=== PATIENT | female | born 1995 | race Caucasian/White ===

== ENCOUNTER 2020-07-21 12:49 | Outpatient (CLI) | payer BC, SELFPAY ==
[2020-07-21 13:25] LABS: Basophils Percent Auto 0.3 % (0.2-1.2); Eosinophils Percent Auto 0.2 % (0-4.4); Hematocrit 33.4 % (37.0-47.0); Hemoglobin 11.4 g/dL (12.0-15.0); Immature Granulocyte Absolute 0.08 K/mm3 (0.00-0.031); Immature Granulocyte Percent A 0.7 % (0-0.5); Lymphocytes Absolute Auto 2.07 K/mm3 (0.9-3.2); Lymphocytes Percent Auto 18.3 % (18.3-44.2); Mean Corpuscular HGB Conc 34.1 g/dl (32-36); Mean Corpuscular Hemoglobin 30.3 pg (26-34); Mean Corpuscular Volume 88.8 fl (80-100); Mean Platelet Volume 9.8 fl (7.4-10.4); Monocytes Absolute Auto 0.9 K/mm3 (0.1-0.6); Monocytes Percent Auto 7.5 % (2.6-8.5); Neutrophils Absolute Auto 8.3 K/mm3 (1.3-6.7); Platelet Count Result 299 k/mm3 (150-375); Red Blood Count 3.76 M/mm3 (4.2-5.4); Red Cell Distribution Width 12.7 % (11.5-14.5); White Blood Count 11.3 K/mm3 (4.5-10.0)
[2020-07-21 14:47] LABS: Vitamin D 25 Hydroxy 46.6 ng/mL
[2020-07-21 14:57] LABS: Glucose 1 Hour PP 50gm Dose 94 mg/dL
== END 2020-07-21 12:50 | disposition home or self-care (01) ==
PROVIDERS: Visit Provider Obstetrics & Gynecology
DX: Z34.90 Encounter for supervision of normal pregnancy, unspecified, unspecified trimester (principal)
CPT/HCPCS: 36415; 82306; 82947; 85025

== ENCOUNTER 2020-10-26 06:24 | Inpatient (IN) | payer BC, SELFPAY ==
[2020-10-26] VITALS (15 sets, daily range): BP systolic 115–144; BP diastolic 74–100; PULSE 61–123; RESP 16–20; TEMP 36.6–36.8; O2SAT 90–100; BMI 39.6
--- NOTE | 2020-10-26 07:10 | LDADM ---
This patient, Belle Nino, was admitted to Labor/Delivery/Recovery 102 on 10/26/20 at 06:24. Plans for labor, pain management and were discussed with patient. Patient/family oriented to hospital policies and general routines including ID bracelet, bed and alarms, visiting hours, pain management, procedures, bathroom and other care routines, personal items, smoking policy, room service/diet and guest tray routines, infant security routines, and visiting hours. Patient/Family are encouraged to report perceived risks to care and to ask questions if they do not understand what they are told or what they should do. See OBIX for further documentation.
--- NOTE | 2020-10-26 07:25 | WPDOBADMIT ---
Obstetrics - Admit Note Admission Note: record reviewed. No pertinent additions to the history and/or any subsequent changes in the physical findings that are not consistent with the expected course of the were found.Pt arrived in active labor after SROM at home, declines IV access and pitocin, Additions to the history and/or subsequent changes in the physical findings follow. None.
--- NOTE | 2020-10-26 08:21 | PM.OBPNLAB ---
Pain Control Date/time seen: 10/26/20 08:21 They had difficulty getting IV. At this time pt declines the IV. We have discussed importance of IV access in case of emergency. Pt verbalized understanding and is willing to let them use a butterfly for labs but not a IV at this time.
[2020-10-26 08:42] LABS: Basophils Percent Auto 0.1 % (0.2-1.2); Hemoglobin 11.9 g/dL (12.0-15.0); Immature Granulocyte Absolute 0.11 K/mm3 (0.00-0.031); Immature Granulocyte Percent A 0.8 % (0-0.5); Lymphocytes Absolute Auto 1.43 K/mm3 (0.9-3.2); Lymphocytes Percent Auto 9.8 % (18.3-44.2); Mean Corpuscular Hemoglobin 29.8 pg (26-34); Mean Corpuscular Volume 87.7 fl (80-100); Mean Platelet Volume 9.9 fl (7.4-10.4); Monocytes Absolute Auto 0.7 K/mm3 (0.1-0.6); Monocytes Percent Auto 4.9 % (2.6-8.5); Neutrophils Absolute Auto 12.3 K/mm3 (1.3-6.7); Neutrophils Percent Auto 84.4 % (45.5-73.1); Platelet Count Result 253 k/mm3 (150-375); Red Blood Count 3.99 M/mm3 (4.2-5.4); Red Cell Distribution Width 13.1 % (11.5-14.5); White Blood Count 14.6 K/mm3 (4.5-10.0)
[2020-10-26] MEDS: OXYTOCIN 10 UNITS/ML VIAL IM (10:47)
[2020-10-26] MEDS: miSOPROStol 200 MCG TABLET 800 MCG (10:55)
--- NOTE | 2020-10-26 11:14 | PM.OBPRVD ---
OB - Delivery Note Procedure Delivery date: 10/26/20 Induction method: none Delivery monitor: external FHT and external uterine Route of delivery: Laceration Description: Perineal - 2nd Degree Delivery repair: vicryl Quantitative Blood Loss (ml): 348 Anesthesia type: Local Baby Date of : 10/26/20 Time of : 10:36 Weeks of gestation at delivery: 39 Infant gender: Female presentation: vertex position: Left Occiput Posterior Placenta delivery description: Spontaneous Narrative: Mother and baby in stable condition. Gasses collected and handed off to staff.
--- NOTE | 2020-10-26 13:40 | PC.NURSE ---
Patient transferred to post room #285 ambulatory from labor and delivery. Support person present. Oriented to unit, room, information board, rooming in, admission packet and security measures. Patient verbalizes understanding.
[2020-10-26] MEDS: WITCH HAZEL 40 PADS 1 PAD TOPICAL (14:00)
[2020-10-26] MEDS: BENZOCAINE 20% AER SPR (*SP) 56 GM CAN 1 SPRAY TOPICAL (14:00)
[2020-10-26] MEDS: LANOLIN (LANSINOH) 7.5 GM CREAM 1 APPLIC TOPICAL (15:24)
--- NOTE | 2020-10-26 15:44 | PC.NURSE ---
1515 Called to room to assist with breast feeding; baby in quiet alert state, sucking on her hand. Mother reports strong first feed after delivery, and then that baby nursed about 4 minutes about one hour ago. Mother has marked flat nipples; areola is soft. baby made fair attempt to latch, but not vigorous enough to latch and pull nipple into her mouth. Mother shown how to gently roll her nipple, but little change seen. Latch assist used, again with little change in how everted mother's nipple was. Nipple shield placed; mother shown how to correctly apply the shield. Baby able to latch and demonstrated rhythmic vigorous sucking for about 3-4 minutes; she became sleepy, and shield repositioned. Switched to L side, and baby latched easily with nipple shield, and demonstrated rhythmic sucking. Parents instructed that mother will start pumping if nipple shield used 3 times. Mother was shown how and can easily hand express colostrum. Parents instructed to call for nurse assistance with breast feedings. FOB present, and engaged in teaching and baby care. Parents voiced understanding of information shared.
[2020-10-27 05:33] LABS: Hematocrit 27.7 % (37.0-47.0); Hemoglobin 9.4 g/dL (12.0-15.0)
[2020-10-27 06:59] LABS: Rapid Plasma Reagin Non-Reactive (NonReactive)
--- NOTE | 2020-10-27 07:49 | PM.OBPNVD ---
OB - PN: Subj Subjective Date/time seen: 10/27/20 07:49 Patient comments: no complaints baby status: doing well OB - PN: Obj Data Labs CBC & Chem 7: 10/27/20 05:10 Labs: Laboratory Results - last 24 hr 10/26/20 10/26/20 10/26/20 07:07 07:07 07:07 WBC 14.6 H RBC 3.99 L Hgb 11.9 L Hct 35.0 L MCV 87.7 MCH 29.8 MCHC 34.0 RDW 13.1 Plt Count 253 MPV 9.9 Immature Gran % (Auto) 0.8 H Neut % (Auto) 84.4 H Lymph % (Auto) 9.8 L [place] % (Auto) 4.9 Eos % (Auto) 0.0 Baso % (Auto) 0.1 L Lymph # (Auto) 1.43 [place] # (Auto) 0.7 H Eos # (Auto) 0.0 Baso # (Auto) 0.0 Abs Immat Gran (auto) 0.11 H Absolute Neuts (auto) 12.3 H Absolute Nucleated RBC 0.0 Nucleated RBC % 0.0 RPR Non-reactive Blood Type O Positive Antibody Screen Negative 10/27/20 05:10 WBC RBC Hgb 9.4 L Hct 27.7 L MCV MCH MCHC RDW Plt Count MPV Immature Gran % (Auto) Neut % (Auto) Lymph % (Auto) [place] % (Auto) Eos % (Auto) Baso % (Auto) Lymph # (Auto) [place] # (Auto) Eos # (Auto) Baso # (Auto) Abs Immat Gran (auto) Absolute Neuts (auto) Absolute Nucleated RBC Nucleated RBC % RPR Blood Type Antibody Screen OB - PN A/P Plan day: 1 Plan: routine care and discharge home (Pt desires discharge to home. She has had 2 elevated blood pressure but normal since. We have discussed PIH precautions in great detail.If labs normal she can be discharged to home. Return to hospital for f/u tomorrow and office in 1 week.) Time Spent With Patient Time: Total time spent is greater than 50% in coordination of care (as documented) at patient's floor/unit and/or counseling patient: Time with patient: less than 15 minutes Review of Systems Review of Systems: All systems reviewed & are unremarkable except as noted in HPI and below Exam Narrative: Exam Narrative: Fundus firm and vaginal flow controlled. No lower ext redness, warmth, or edema. Negative homans. Denies h/a, v/d or e/p. Reflexes normal. Const: General: comfortable Chest: Breast/axilla inspection: normal inspection of the breasts Resp: Effort & Inspection: normal respiratory effort Cardio: Rate: regular rate GI: GI Palp: Yes Soft to palpation Psych: Appearance: grossly normal Affect: normal affect Attitude: cooperative Thought content: Yes Normal thought content present Judgement: Good judgement present (Psych)
[2020-10-27 07:55] VITALS: BP 123/73; PULSE 96; RESP 16; TEMP 36.8; O2SAT 99
[2020-10-27 08:30] VITALS: PULSE 96; RESP 16; O2SAT 99
[2020-10-27] MEDS: MULTIVIT/MIN/PREN/FOL AC/IRON TABLET 1 TAB PO (08:45)
[2020-10-27] MEDS: DOCUSATE SODIUM 100 MG CAPSULE PO (08:45)
[2020-10-27] MEDS: POLYSACCHARIDE IRON COMPLEX 150 MG CAPSULE PO (08:45)
[2020-10-27 09:22] LABS: Basophils Percent Auto 0.3 % (0.2-1.2); Eosinophils Percent Auto 0.3 % (0-4.4); Hematocrit 28.7 % (37.0-47.0); Hemoglobin 9.5 g/dL (12.0-15.0); Immature Granulocyte Absolute 0.06 K/mm3 (0.00-0.031); Immature Granulocyte Percent A 0.6 % (0-0.5); Lymphocytes Absolute Auto 1.94 K/mm3 (0.9-3.2); Lymphocytes Percent Auto 18.5 % (18.3-44.2); Mean Corpuscular HGB Conc 33.1 g/dl (32-36); Mean Corpuscular Hemoglobin 29.4 pg (26-34); Mean Corpuscular Volume 88.9 fl (80-100); Mean Platelet Volume 9.8 fl (7.4-10.4); Monocytes Absolute Auto 0.9 K/mm3 (0.1-0.6); Monocytes Percent Auto 8.6 % (2.6-8.5); Neutrophils Absolute Auto 7.5 K/mm3 (1.3-6.7); Neutrophils Percent Auto 71.7 % (45.5-73.1); Platelet Count Result 208 k/mm3 (150-375); Red Blood Count 3.23 M/mm3 (4.2-5.4); Red Cell Distribution Width 13.2 % (11.5-14.5); White Blood Count 10.5 K/mm3 (4.5-10.0)
[2020-10-27 09:34] LABS: Alanine Aminotransferase 14 U/L (4-35); Albumin Level 3.3 g/dL (3.5-5.1); Alkaline Phosphatase 110 U/L (38-126); Anion Gap 6 mmol/L (8-16); Aspartate Amino Transferase 26 U/L (14-36); Bilirubin,Total 0.3 mg/dL (0.2-1.3); Blood Urea Nitrogen 10 mg/dL (7-17); Calcium 8.7 mg/dL (8.4-10.2); Carbon Dioxide 27 mmol/L (22-30); Chloride 103 mmol/L (98-107); Estimated CRCL calculation 186 ml/min; Estimated Glomerular Filt Rate > 60; Glucose 127 mg/dL (65-105); Potassium 3.7 mmol/L (3.4-5.0); Sodium 136 mmol/L (137-145); Uric Acid 4.4 mg/dL (2.5-7.5)
--- NOTE | 2020-10-27 15:18 | PC.NURSE ---
1315 Worked with mother and baby at this feeding; baby awake. Nipple shield placed; mother able to apply nipple shield correctly. Mother uses football position. Reviewed positioning, alignment and importance of deep latch with the nipple shield. Baby latched and nursed and mother reported comfortable breast feeding. Baby nursed about 10 minutes. FOB then fed bottle feeding when baby took eagerly. Feeding plan initiated ofo breast feeding, bottle feeding and pumping at every feeding. At home baby to take minimum of 20-30 cc increasing as baby desires. Mother states she has some stored breast milk in her freezer at home that she pumped over the past week or so. Reviewed giving breast milk first, and adding formula to complete baby's feedings. They voiced understanding. Mother expressed interest in an OB visit next week. Nurse encouraged it. They will call for an appointment. Mother has Mother- Baby guide for home reference and LC contact information.
--- NOTE | 2020-10-27 16:47 | PC.NURSE ---
1400-Patient viewed the discharge video Mother & Baby Care, The First Two Weeks . Patient was given the opportunity and encouraged to ask questions. Patient verbalized understanding of information shared and has been given the mother/baby guide for home reference.
[2020-10-28 09:15] VITALS: BP 125/75; PULSE 84; RESP 20; TEMP 36.9; O2SAT 100
--- NOTE | 2020-11-16 08:09 | PM.OBDSVD ---
DS: Admitting Diagnosis Admitting Diagnosis Admitting Diagnosis: Labor DS: Discharge Diagnosis Discharge Diagnosis (1) Vaginal delivery: Code(s): O80 - Encounter for full-term uncomplicated delivery Status: Acute OB - DS: Summary OB Procedures : None OB Procedures Intrapartum: Spontaneous Vag Delivery OB Procedures: : None Time Spent with Patient Time attestation: Total time spent providing and/or coordinating discharge services: Discharge Plan Discharge Attending physician on discharge: Eunice Smith Consulting providers: Mireya Martinez Kacey A. Discharging Clinician: Eunice Smith Patient Disposition: Home, Self-Care Activity: pelvic rest Diet: as tolerated Discharge Instructions: Education: Mom and Baby Guide Given to: Follow-Up: Call your delivering provider's office for an appointment to be seen in: 1 Week (blood pressure check) Mom and baby should come to the [facility] for the follow-up appointment. Appointment Date/Time: Wednesday, October 28, 2020 at 9:00 a.m. What to expect at your follow-up visit: Blood Pressure Check Physical Assessment Call [phone] if you are unable to keep your appointment time. BREAST CARE: * Wear a snug supportive bra. * For engorgement discomfort: Breast Feeding: * Apply warm moist washcloths * Express milk as needed to relieve engorgement * Wear loose clothing * For sore nipples: * Identify correct latch-on * Apply warm moist washcloths before and after nursing * Air dry nipples after nursing * May apply Lansinoh cream to nipples EPISIOTOMY/PERINEAL CARE: * Until bleeding stops, use your jie bottle after urinating * Change your pad frequently throughout the day * You may take sitz baths several times a day (fill your bathtub with warm water and soak for 20 minutes.) Do NOT bathe in the water * No tub baths until seen by your physician - You may shower ACTIVITY: * Rest as much as possible. * Do not exercise or lift anything heavier than your baby (such as laundry or other children.) * Avoid stairs or driving as much as possible. * Do not put anything into the vagina. No douching, tampons, or sexual activity until seen by physician. NOTIFY PHYSICIAN IF YOU HAVE ANY QUESTIONS OR IF ANY OF THE FOLLOWING SYMPTOMS OCCUR: * If your episiotomy becomes red, swollen, or more painful than what you have experienced in the hospital. * If your vaginal bleeding becomes foul smelling. * If your vaginal bleeding becomes more heavy than a period or if your bleeding changes from pink to bright red. However, you may pass an occasional walnut-sized clot once or twice for the first week . * If you experience a sharp, shooting pain in you calves. * If you discover a hard, reddened area on your breast or if you experience flu-like symptoms. DIET: * Eat regular, well-balanced meals. * Drink plenty of fluids daily. If , drink to thirst. Stand Alone Forms: General Discharge Information Follow-up/Referrals: Eunice Smith CNM [Certified Nurse Buffing Machine Operator Semiautomatic] - 1 Week Discharge Medications: Continued ferrous gluconate 324 mg (37.5 mg iron) tablet 324 mg PO DAILY RF: 0 PNV cmb#95-ferrous fumarate-FA [] 28 mg iron- 800 mcg Tablet 1 tablet PO DAILY RF: 0 Date of admission: 10/26/20 06:24 Primary Care Provider: PHYSICIAN,LAW LIBRARIAN Admitting Provider: Kalie Bran Attending physician on admission: Kalie Bran Condition: Stable
== END 2020-10-27 16:30 | disposition home or self-care (01) | DRG 807 ==
LOC: ANHLDR 06:59 → ANHOB2 13:45
PROVIDERS: Advanced Practice Midwife; Admitting Provider Obstetrics & Gynecology; Visit Provider Obstetrics & Gynecology
DX: O99.02 Anemia complicating childbirth (principal); Z37.0 Single live birth; Z3A.39 39 weeks gestation of pregnancy; D64.9 Anemia, unspecified; O70.1 Second degree perineal laceration during delivery
CPT/HCPCS: 36415; 80053; 84112; 84550; 85014; 85018; 85025; 86592; 86850; 86900; 86901; A9270; J2590

== ENCOUNTER 2021-12-10 12:58 | Inpatient (IN) | payer BC, SELFPAY ==
[2021-12-10] VITALS (13 sets, daily range): BP systolic 122–149; BP diastolic 65–94; PULSE 78–149; RESP 16–18; TEMP 36.6–37.2; BMI 45.3
--- OUTSIDE RECORDS SUMMARY | 2021-12-10 13:10 | XMS_ITS | Encounter Summary ---
:1995 Author Reason for Visit OB visit 39w1d Assessment and Plan 1. Routine care Discussion Note: None recorded.Patient educational handouts: No information available. Plan of Care Reminders Provider Appointments Ob Routine Osmin Smith CNM 12/11/2021 11:15AM Lab None ? ? recorded. Referral None ? ? recorded. Procedures None ? ? recorded. Surgeries None ? ? recorded. Imaging None ? ? recorded. Medications Name Start Date ? ? iron ? ? Medications Administered None recorded. Vitals Height Weight BMI Blood Pressure 5 ft 7 in 263 lbs 41.2 kg/m2 135/87 mm[Hg] Results Lab Results None recorded. Allergies Code Code System Name Reaction Severity Onset NKDA ? ? ? Problems Name Status Onset Date Source ? Active 05/31/2021 ? Maternal Obesity Complicating , Active ? ? Childbirth and the Puerperium, Antepartum Procedures Date Name Performed by ?
--- OUTSIDE RECORDS SUMMARY | 2021-12-10 13:10 | XMS_ITS | Encounter Summary ---
:1995 Author Reason for Visit OB visit Assessment and Plan 1. Routine care Discussion [...] BMI Blood Pressure 5 ft 7 in 264 lbs 41.3 kg/m2 126/80 mm[Hg] Results Lab Results None recorded. Allergies Code Code System Name Reaction Severity Onset NKDA ? ? ? Problems Name Status Onset Date Source ? Active 05/31/2021 ? Maternal Obesity Complicating , Active ? ? Childbirth and the Puerperium, Antepartum Procedures Date Name Performed by ?
--- OUTSIDE RECORDS SUMMARY | 2021-12-10 13:10 | XMS_ITS | Encounter Summary ---
:1995 Author Reason for Visit None recorded. Assessment and Plan 1. Reduced movement ? non-stress test Discussion Note: None recorded.Patient educational handouts: No information available. Plan of Care Reminders Provider Appointments Ob Routine Osmin Smith CNM 12/11/2021 11:15AM Lab None ? ? recorded. Referral None ? ? recorded. Procedures None ? ? recorded. Surgeries None ? ? recorded. Imaging Non-stress [place] Test 09/14/2021 Medications Name Start Date ? ? iron ? ? Medications Administered None recorded. Vitals Blood Pressure 120/77 mm[Hg] Results Lab Results None recorded. Allergies Code Code System Name Reaction Severity Onset NKDA ? ? ? Problems Name Status Onset Date Source ? Active 05/31/2021 ? Maternal Obesity Complicating , Active ? ? Childbirth and the Puerperium, Antepartum Procedures Jagdeep
--- OUTSIDE RECORDS SUMMARY | 2021-12-10 13:10 | XMS_ITS | Encounter Summary ---
[...] BMI Blood Pressure 5 ft 7 in 250 lbs 39.2 kg/m2 128/80 mm[Hg] Results Lab Results None recorded. Allergies Code Code System Name Reaction Severity Onset NKDA ? ? ? Problems Name Status Onset Date Source ? Active 05/31/2021 ? Maternal Obesity Complicating , Active ? ? Childbirth and the Puerperium, Antepartum Procedures Date Name Performed by ?
--- OUTSIDE RECORDS SUMMARY | 2021-12-10 13:10 | XMS_ITS | Encounter Summary ---
:1995 Author Reason for Visit OB visit 37w2d Assessment and Plan 1. Routine care Discussion [...] BMI Blood Pressure 5 ft 7 in 260 lbs 40.7 kg/m2 121/80 mm[Hg] Results Lab Results None recorded. Allergies Code Code System Name Reaction Severity Onset NKDA ? ? ? Problems Name Status Onset Date Source ? Active 05/31/2021 ? Maternal Obesity Complicating , Active ? ? Childbirth and the Puerperium, Antepartum Procedures Date Name Performed by ?
--- OUTSIDE RECORDS SUMMARY | 2021-12-10 13:10 | XMS_ITS | Encounter Summary ---
:1995 Author Reason for Visit OB visit 36w2d Assessment and Plan 1. Routine care Discussion [...] ft 7 in 260 lbs 40.7 kg/m2 128/83 mm[Hg] Results Lab Results None recorded. Allergies Code Code System Name Reaction Severity Onset NKDA ? ? ? Problems Name Status Onset Date Source ? Active 05/31/2021 ? Maternal Obesity Complicating , Active ? ? Childbirth and the Puerperium, Antepartum Procedures Date Name Performed by ?
--- OUTSIDE RECORDS SUMMARY | 2021-12-10 13:10 | XMS_ITS | Encounter Summary ---
:1995 Author Reason for Visit OB visit 34w2d Assessment and Plan 1. Routine care Discussion [...] BMI Blood Pressure 5 ft 7 in 254 lbs 39.8 kg/m2 120/78 mm[Hg] Results Lab Results None recorded. Allergies Code Code System Name Reaction Severity Onset NKDA ? ? ? Problems Name Status Onset Date Source ? Active 05/31/2021 ? Maternal Obesity Complicating , Active ? ? Childbirth and the Puerperium, Antepartum Procedures Date Name Performed by ?
--- OUTSIDE RECORDS SUMMARY | 2021-12-10 13:10 | XMS_ITS | Encounter Summary ---
:1995 Author Reason for Visit OB visit pt is here today for her 32.2 week ob vi sit. Assessment and Plan 1. Routine care Discussion [...] BMI Blood Pressure 5 ft 7 in 249.8 lbs 39.1 kg/m2 130/84 mm[Hg] Results Lab Results None recorded. Allergies Code Code System Name Reaction Severity Onset NKDA ? ? ? Problems Name Status Onset Date Source ? Active 05/31/2021 ? Maternal Obesity Complicating , Active ? ? Childbirth and the Puerperium, Antepartum Procedures Date Name
--- OUTSIDE RECORDS SUMMARY | 2021-12-10 13:10 | XMS_ITS | Encounter Summary ---
:1995 Author Reason for Visit OB visit 28W2D / Glucose today Assessment and Plan 1. Routine care Discussion [...] BMI Blood Pressure 5 ft 7 in 246 lbs 38.5 kg/m2 115/75 mm[Hg] Results Lab Results None recorded. Allergies Code Code System Name Reaction Severity Onset NKDA ? ? ? Problems Name Status Onset Date Source ? Active 05/31/2021 ? Maternal Obesity Complicating , Active ? ? Childbirth and the Puerperium, Antepartum Procedures Date Name Performed by ?
--- OUTSIDE RECORDS SUMMARY | 2021-12-10 13:10 | XMS_ITS ---
:1995 Author Care Team Providers Name Role Phone Eunice Smith Primary Care Provider Unavailable Allergies Code Code System Name Reaction Severity Status Onset NKDA ? Medications Name Status Start Date Stop Date ? ? iron Active ? Not available medroxyprogesterone 10 mg tablet Completed ? 09/26/2020 NuvaRing 0.12 mg-0.015 mg/24 hr vaginal Completed ? 09/26/2020 Active ? Not available Problems Name Status Onset Date Source ? Unknown 08/08/2020 ? Screening Unknown 10/05/2020 ? Active 05/31/2021 ? Maternal Obesity Complicating , Active ? ? Childbirth and the Puerperium, Antepartum Procedures Date Name Performed by ? 07/03/2018 Dilation and Curettage Information not a vailable Notes: miscarriage 11/11/2016 Extraction of [place] Tooth Information n ot available 11/11/2007 Appendectomy Information not avai lable 05/31/2021 US, Obstetric, Nuchal Translucency Abril luciano [address] [place] [address] ([address]) 07/26/2021 US, Obstetric, 2Nd or 3Rd Trimester Lani hope [address] [place] [address] ([address]) 09/14/2021
--- NOTE | 2021-12-10 13:27 | LDADM ---
This patient, Belle Nino, was admitted to Labor/Delivery/Recovery 105 on 12/10/21 at 12:58. Plans for labor, pain management and were discussed with patient. Patient/family oriented to hospital policies and general routines including ID bracelet, bed and alarms, visiting hours, pain management, procedures, bathroom and other care routines, personal items, smoking policy, room service/diet and guest tray routines, infant security routines, and visiting hours. Patient/Family are encouraged to report perceived risks to care and to ask questions if they do not understand what they are told or what they should do. See OBIX for further documentation.
[2021-12-10 13:35] LABS: Basophils Percent Auto 0.3 % (0.2-1.2); Eosinophils Percent Auto 0.1 % (0-4.4); Hematocrit 35.9 % (37.0-47.0); Hemoglobin 11.9 g/dL (12.0-15.0); Immature Granulocyte Absolute 0.04 K/mm3 (0.00-0.031); Immature Granulocyte Percent A 0.4 % (0-0.5); Lymphocytes Absolute Auto 1.65 K/mm3 (0.9-3.2); Lymphocytes Percent Auto 15.6 % (18.3-44.2); Mean Corpuscular HGB Conc 33.1 g/dl (32-36); Mean Corpuscular Volume 87.3 fl (80-100); Mean Platelet Volume 10.3 fl (7.4-10.4); Monocytes Absolute Auto 0.7 K/mm3 (0.1-0.6); Monocytes Percent Auto 6.5 % (2.6-8.5); Neutrophils Absolute Auto 8.1 K/mm3 (1.3-6.7); Neutrophils Percent Auto 77.1 % (45.5-73.1); Platelet Count Result 244 k/mm3 (150-375); Red Blood Count 4.11 M/mm3 (4.2-5.4); Red Cell Distribution Width 13.8 % (11.5-14.5); White Blood Count 10.6 K/mm3 (4.5-10.0)
--- NOTE | 2021-12-10 14:38 | P.PCNOB_ITS ---
OB - Delivery Note Procedure Delivery date: 12/10/21 Procedure: Intrapartal events: None Narrative: Pt on knees leaning over back of bed for delivery. Compound presentation with hand. Loose nuchal cord x 3 reduced easily. Mother and baby in stable condition. Cord gasses collected and handed off to staff. [place] Baby Date of : 12/10/21 Time of : 14:08 Weeks of gestation at delivery: 40 gender: Male Weight (pounds): 8 Weight (ounces): 3 presentation: vertex position: Left Occiput Anterior (hand delivered right after vertex.) Placenta delivery description: Spontaneous cord vessel description: Nuchal Cord (x3) and Delayed Cord Clamping score one minute: 8 score five minutes: 9
[2021-12-10 15:10] LABS: Alanine Aminotransferase 14 U/L (4-35); Albumin Level 4.1 g/dL (3.5-5.1); Alkaline Phosphatase 211 U/L (38-126); Anion Gap 7 mmol/L (8-16); Aspartate Amino Transferase 20 U/L (14-36); Bilirubin,Total 0.5 mg/dL (0.2-1.3); Blood Urea Nitrogen 7 mg/dL (7-17); Calcium 9.7 mg/dL (8.4-10.2); Carbon Dioxide 22 mmol/L (22-30); Chloride 104 mmol/L (98-107); Estimated Glomerular Filt Rate > 60; Glucose 84 mg/dL (65-110); Potassium 4.4 mmol/L (3.4-5.0); Sodium 133 mmol/L (137-145); Uric Acid 3.6 mg/dL (2.5-7.5)
--- NOTE | 2021-12-10 16:55 | PC.NURSE ---
Patient transferred to post room #291, patient ambulated to room. Support person present. Oriented to unit, room, information board, rooming in, admission packet and security measures. Patient verbalizes understanding.
[2021-12-11 04:18] VITALS: BP 134/84; PULSE 94; RESP 16; TEMP 36.9
[2021-12-11 04:32] LABS: Hematocrit 31.4 % (37.0-47.0); Hemoglobin 10.5 g/dL (12.0-15.0)
[2021-12-11 06:08] LABS: Rapid Plasma Reagin Non-Reactive (NonReactive)
[2021-12-11 07:45] VITALS: BP 119/80; PULSE 79; RESP 16; TEMP 37.1; O2SAT 100
--- NOTE | 2021-12-11 08:07 | PM.OBPNVD ---
OB - PN: Subj Subjective Date/time seen: 12/11/21 08:07 Patient comments: no complaints baby status: doing well OB - PN: Obj Data Labs CBC & Chem 7: 12/11/21 04:12 12/10/21 13:21 Labs: Laboratory Results - last 24 hr 12/10/21 12/10/21 12/10/21 13:21 13:24 13:24 WBC 10.6 H RBC 4.11 L Hgb 11.9 L Hct 35.9 L MCV 87.3 MCH 29.0 MCHC 33.1 RDW 13.8 Plt Count 244 MPV 10.3 Immature Gran % (Auto) 0.4 Neut % (Auto) 77.1 H Lymph % (Auto) 15.6 L [place] % (Auto) 6.5 Eos % (Auto) 0.1 Baso % (Auto) 0.3 Lymph # (Auto) 1.65 [place] # (Auto) 0.7 H Eos # (Auto) 0.0 Baso # (Auto) 0.0 Abs Immat Gran (auto) 0.04 H Absolute Neuts (auto) 8.1 H Absolute Nucleated RBC 0.0 Nucleated RBC % 0.0 Sodium 133 L Potassium 4.4 Chloride 104 Carbon Dioxide 22 Anion Gap 7 L BUN 7 Creatinine 0.40 L Estim Creat Clear Calc Not Reportable Estimated GFR > 60 Glucose 84 Uric Acid 3.6 Calcium 9.7 Total Bilirubin 0.5 AST 20 ALT 14 Alkaline Phosphatase 211 H Total Protein 7.0 Albumin 4.1 RPR Non-reactive Blood Type Antibody Screen 12/10/21 12/11/21 13:24 04:12 WBC RBC Hgb 10.5 L Hct 31.4 L MCV MCH MCHC RDW Plt Count MPV Immature Gran % (Auto) Neut % (Auto) Lymph % (Auto) [place] % (Auto) Eos % (Auto) Baso % (Auto) Lymph # (Auto) [place] # (Auto) Eos # (Auto) Baso # (Auto) Abs Immat Gran (auto) Absolute Neuts (auto) Absolute Nucleated RBC Nucleated RBC % Sodium Potassium Chloride Carbon Dioxide Anion Gap BUN Creatinine Estim Creat Clear Calc Estimated GFR Glucose Uric Acid Calcium Total Bilirubin AST ALT Alkaline Phosphatase Total Protein Albumin RPR Blood Type O Positive Antibody Screen Negative OB - PN A/P Plan day: 1 Plan: routine care and discharge home (F/U in 4 weeks) Time Spent With Patient Time: Total time spent is greater than 50% in coordination of care (as documented) at patient's floor/unit and/or counseling patient: Time with patient: less than 15 minutes Review of Systems Review of Systems: All systems reviewed & are unremarkable except as noted in HPI and below Exam Narrative: Fundus firm and vaginal flow controlled. No lower ext redness, warmth, or edema. Negative homans. Const: General: comfortable Chest: Breast/axilla inspection: normal inspection of the breasts Resp: Effort & Inspection: normal respiratory effort Cardio: Rate: regular rate GI: GI Palp: Yes Soft to palpation Psych: Appearance: grossly normal Affect: normal affect Attitude: cooperative Thought content: Yes Normal thought content present Judgement: Good judgement present (Psych)
--- NOTE | 2021-12-11 08:08 | PM.OBDSVD ---
DS: Admitting Diagnosis Discharge Date 12/11/21 Admitting Diagnosis Labor OB - DS: Summary OB Procedures : None OB Procedures Intrapartum: Spontaneous Vag Delivery OB Procedures: : None Time Spent with Patient Time attestation: Total time spent providing and/or coordinating discharge services: DS: Data Data Completed and Pending Labs on day of discharge: Labs from last 24 hours 12/11/21 12/10/21 12/10/21 04:12 13:24 13:24 WBC RBC Hgb 10.5 L Hct 31.4 L MCV MCH MCHC RDW Plt Count MPV Immature Gran % (Auto) Neut % (Auto) Lymph % (Auto) [place] % (Auto) Eos % (Auto) Baso % (Auto) Lymph # (Auto) [place] # (Auto) Eos # (Auto) Baso # (Auto) Abs Immat Gran (auto) Absolute Neuts (auto) Absolute Nucleated RBC Nucleated RBC % Sodium Potassium Chloride Carbon Dioxide Anion Gap BUN Creatinine Estim Creat Clear Calc Estimated GFR Glucose Uric Acid Calcium Total Bilirubin AST ALT Alkaline Phosphatase Total Protein Albumin RPR Non-reactive Blood Type O Positive Antibody Screen Negative 12/10/21 12/10/21 13:24 13:21 WBC 10.6 H RBC 4.11 L Hgb 11.9 L Hct 35.9 L MCV 87.3 MCH 29.0 MCHC 33.1 RDW 13.8 Plt Count 244 MPV 10.3 Immature Gran % (Auto) 0.4 Neut % (Auto) 77.1 H Lymph % (Auto) 15.6 L [place] % (Auto) 6.5 Eos % (Auto) 0.1 Baso % (Auto) 0.3 Lymph # (Auto) 1.65 [place] # (Auto) 0.7 H Eos # (Auto) 0.0 Baso # (Auto) 0.0 Abs Immat Gran (auto) 0.04 H Absolute Neuts (auto) 8.1 H Absolute Nucleated RBC 0.0 Nucleated RBC % 0.0 Sodium 133 L Potassium 4.4 Chloride 104 Carbon Dioxide 22 Anion Gap 7 L BUN 7 Creatinine 0.40 L Estim Creat Clear Calc Not Reportable Estimated GFR > 60 Glucose 84 Uric Acid 3.6 Calcium 9.7 Total Bilirubin 0.5 AST 20 ALT 14 Alkaline Phosphatase 211 H Total Protein 7.0 Albumin 4.1 RPR Blood Type Antibody Screen Discharge Plan Discharge Attending physician on discharge: Eunice Smith Discharging Clinician: Eunice Smith Patient Disposition: Home, Self-Care Activity: pelvic rest Diet: as tolerated Patient Instructions: Antibiotic Form Stand Alone Forms: General Discharge Information Follow-up/Referrals: Eunice Smith, CNM [Certified Nurse Student Life Coordinator] - Discharge Medications: Continued PNV cmb#95-ferrous fumarate-FA [] 28 mg iron- 800 mcg Tablet 1 tablet PO DAILY RF: 0 Date of admission: 12/10/21 12:58 Primary Care Provider: PHYSICIAN,[employer] MAIL CARRIER Admitting Provider: Kalie Bran Attending physician on admission: Kalie Bran Condition: Stable
--- NOTE | 2021-12-11 09:51 | PC.NURSE ---
0755 - Introductions were made and mother led the discussion of her desires and plans to feed her baby. Reviewed handwashing to prevent infection before and after taking care of her baby. Mother verbalizes she is not latching infant to the breast. She has flat nipples and plans to pump and feed the baby. Mother has verbalized understanding watching for feeding cues for responsive feeding or how to stimulate to initiate from the start of the last feeding. Infant has had appropriate feedings in the past 24 hours and meets the outcomes for weight, output and jaundice. Mother states she feels confident to continue feed her at home. Reviewed production of human milk, transition of milk, signs of adequate intake and engorgement prevention/relief and when to call the infant care provider using the mom and baby guide. Reviewed community resources and outpatient services as listed in the mom and baby guide/[facility] website. Reinforced watching for feeding cues with responsive feeding and how to stimulate infant to initiate feeding three hours from the start of the last feeding. Mother voiced understanding of information shared. Mother voiced understanding to feed when she sees feeding cues, 8-12 times in 24 hours approximately every 2-3 hours from the start of the last feeding or she has discomfort with nursing. Reported to primary RN.
--- NOTE | 2021-12-11 15:00 | PC.NURSE ---
Patient received instruction on viewing the discharge video Mother & Baby Care, The First Two Weeks . Patient was given the opportunity and encouraged to ask questions. Patient verbalized understanding of information shared and has been given the mother/baby guide for home reference.
[2021-12-12 09:33] VITALS: BP 135/85; PULSE 83; RESP 20; TEMP 37.1; O2SAT 100
== END 2021-12-11 15:10 | disposition home or self-care (01) | DRG 807 ==
LOC: ANHLDR 13:07 → ANHOB2 17:02
PROVIDERS: Advanced Practice Midwife; Admitting Provider Obstetrics & Gynecology; Visit Provider Obstetrics & Gynecology
DX: O32.6XX0 Maternal care for compound presentation, not applicable or unspecified (principal); Z37.0 Single live birth; O69.81X0 Labor and delivery complicated by cord around neck, without compression, not applicable or unspecified; Z3A.40 40 weeks gestation of pregnancy
CPT/HCPCS: 36415; 80053; 84550; 85014; 85018; 85025; 86592; 86850; 86900; 86901